=== PATIENT | female | born 2005 | race Hispanic/Latino ===

== ENCOUNTER 2024-11-29 21:26 | Emergency (ER) | payer OTHER, SELFPAY ==
[2024-11-29 21:31] VITALS: BP 112/62
[2024-11-29 21:59] LABS: Hematocrit 36.1 % (37.0-47.0); Hemoglobin 11.7 g/dL (12.0-16.0); Mean Corp Hgb Conc. 32.4 g/dL (33.0-37.0); Mean Corpuscular Volume 77.0 fL (81.0-99.0); Nucleated Red Blood Cells % 0 %; Platelet Count 272 10^3/uL (130-400); Red Cell Dist. Width 14.7 % (11.5-14.5)
[2024-11-29 22:02] LABS: Urine Character Cloudy (Clear)
[2024-11-29 22:13] LABS: HCG, Serum Qualitative Screen Negative
[2024-11-29 22:19] LABS: ALT (SGPT) 20 U/L (0-35); AST (SGOT) 22 U/L (14-36); Albumin 4.4 g/dl (3.5-5.0); Alkaline Phosphatase 60 U/L (38-126); Blood Urea Nitrogen 13 mg/dl (7-17); Calcium 9.1 mg/dl (8.4-10.2); Carbon Dioxide 25 mmol/L (22-30); Chloride 106 mmol/L (98-107); Glucose 97 mg/dl (70-99); Potassium 4.7 mmol/L (3.5-5.1); Sodium 139 mmol/L (135-145); Total Protein 7.8 g/dl (6.3-8.2); eGFR > 60.00
[2024-11-29 22:26] LABS: Urine Red Blood Cell 0-2 /HPF (0-2); Urine Squamous Cell >30 /LPF (Few)
[2024-11-30] VITALS (9 sets, daily range): BP systolic 86–101; BP diastolic 53–66; BMI 26.7
--- NOTE | 2024-11-30 05:54 | ED.GENMED ---
History of Present Illness
<Luis Marquez Jr., PA-C - Last Filed: 12/01/24 17:41>
General
Chief Complaint: Abdominal Pain
Source: patient
Exam Limitations: none
Time Seen by Provider: 11/30/24 02:36
Nursing documentation reviewed up to this point in time: agreed with
History of Present Illness
History of Present Illness:
19-year-old female presenting to the emergency department today with concerns of pelvic pain somewhat persistent over the past 2 months. Claims to have had a miscarriage in September where she had an elevated test had vaginal bleeding at the
time and cramping and believes she had a miscarriage but has had some ongoing achiness. She spoke with a doctor yesterday they told her to go to the ER to get an ultrasound to ensure there retained contents. She denies any ongoing bleeding
at this time. Symptoms are mainly crampy and pelvic. Denies nausea vomiting or fevers.
Review of Systems
<Luis Marquez Jr., PA-C - Last Filed: 12/01/24 17:41>
Review of Systems
Allergies reviewed?: Yes
All Other Systems: ROS reviewed and negative except as documented in HPI and ROS
Phy Exam
<Luis Marquez Jr., PA-C - Last Filed: 12/01/24 17:41>
Physical Exam
Physical Exam:
GENERAL: Alert , in no apparent distress
EYE: pupils equal and reactive
NECK: Supple, no significant adenopathy.
ENT: o/p clr, mmm.
CARDIAC: Regular rate and rhythm .
LUNGS: Clear breath sounds bilaterally, no acute respiratory distress, no wheezes/rales/rhonchi
ABDOMEN: Mild discomfort to the suprapubic and pelvic area otherwise the remainder of the abdomen is soft, without focal tenderness, no r/g, no cvat
NEUROLOGICAL: Alert and oriented, no focal neuro deficits
SKIN: Warm and dry, skin intact.
MUSCULOSKELETAL: No edema, well perfused.
PSYCH: Normal and appropriate interaction.
Course
<Luis Marquez Jr., CHECO - Last Filed: 12/01/24 17:41>
Orders/Labs/Results
Orders:
Orders
11/29/24 21:37
Test Result ONCE
11/29/24 21:45
Beta Hcg Serum Qualitative Screen [HCG, Serum Qualitative Screen] Urgent
Complete Blood Count/With Diff Urgent
Comprehensive Metabolic Panel Urgent
11/29/24 21:50
Urinalysis Urgent
Date Specimen was Collected: 11/29/24
Time Specimen was Collected: 21:37
Urine Microscopic Urgent
Date Specimen was Collected: 11/29/24
Time Specimen was Collected: 21:37
11/30/24 04:09
US Pelvis Only (non-obstetric) Urgent
Comment:
Reason For Exam: pelvic pain, recent miscarriage
Abnormal Lab Results
11/29/24 11/29/24
21:45 21:50
Hgb 11.7 L g/dL
(12.0-16.0)
Hct 36.1 L %
(37.0-47.0)
MCV 77.0 L fL
(81.0-99.0)
MCH 24.9 L pg
(27.0-31.0)
MCHC 32.4 L g/dL
(33.0-37.0)
RDW 14.7 H %
(11.5-14.5)
Creatinine 0.5 L mg/dL
(0.6-1.0)
Ur Leukocyte Esterase 1+ A
(Negative)
Urine WBC 6-10 A /HPF
(0-5)
Urine Bacteria Few A
(Negative)
Urine Albumin 1+ A
(Neg - Trace)
11/29/24 21:45
11/29/24 21:45
Vital Signs
Initial and Last Documented VS:
Initial Vital Signs
Temp Pulse Resp BP
98.3 F 82 18 112/62
11/29/24 21:31 11/29/24 21:31 11/29/24 21:31 11/29/24 21:31
Last Documented Vital Signs
Temp Pulse Resp BP Pulse Ox
98.3 F 73 18 92/60 98
11/29/24 21:31 11/30/24 08:50 11/29/24 21:31 11/30/24 08:50 11/30/24 08:50
<KEYONA Conde - Last Filed: 11/30/24 08:17>
Orders/Labs/Results
Orders:
Orders
11/29/24 21:37
Test Result ONCE
11/29/24 21:45
Beta Hcg Serum Qualitative Screen [HCG, Serum Qualitative Screen] Urgent
Complete Blood Count/With Diff Urgent
Comprehensive Metabolic Panel Urgent
11/29/24 21:50
Urinalysis Urgent
Date Specimen was Collected: 11/29/24
Time Specimen was Collected: 21:37
Urine Microscopic Urgent
Date Specimen was Collected: 11/29/24
Time Specimen was Collected: 21:37
11/30/24 04:09
US Pelvis Only (non-obstetric) Urgent
Comment:
Reason For Exam: pelvic pain, recent miscarriage
Abnormal Lab Results
11/29/24 11/29/24
21:45 21:50
Hgb 11.7 L g/dL
(12.0-16.0)
Hct 36.1 L %
(37.0-47.0)
MCV 77.0 L fL
(81.0-99.0)
MCH 24.9 L pg
(27.0-31.0)
MCHC 32.4 L g/dL
(33.0-37.0)
RDW 14.7 H %
(11.5-14.5)
Creatinine 0.5 L mg/dL
(0.6-1.0)
Ur Leukocyte Esterase 1+ A
(Negative)
Urine WBC 6-10 A /HPF
(0-5)
Urine Bacteria Few A
(Negative)
Urine Albumin 1+ A
(Neg - Trace)
11/29/24 21:45
11/29/24 21:45
Vital Signs
Initial and Last Documented VS:
Initial Vital Signs
Temp Pulse Resp BP
98.3 F 82 18 112/62
11/29/24 21:31 11/29/24 21:31 11/29/24 21:31 11/29/24 21:31
Last Documented Vital Signs
Temp Pulse Resp BP Pulse Ox
98.3 F 73 18 92/60 98
11/29/24 21:31 11/30/24 08:50 11/29/24 21:31 11/30/24 08:50 11/30/24 08:50
<Luis Marquez Jr., PA-C - Last Filed: 12/01/24 17:41>
MDM/Problems Addressed
MDM/Problems Addressed:
19-year-old female presenting to the emergency department today with concerns of pelvic crampy discomfort that has been ongoing over the past 2 months after she believes she had a miscarriage where she had an elevated test and had vaginal
bleeding and believes she had contents. She did not follow-up after this. She spoke with a doctor today that recommended go to the ER for an ultrasound to ensure no retained contents. On arrival vital signs are normal. Labs
unremarkable test is negative urinalysis without signs of infection. Vague mild discomfort mainly overlying the pelvic region of the lower abdomen remainder the abdomen soft no pain to McBurney's point over the upper abdomen.
<Edward R Marquez Jr., PA-C - Last Filed: 12/01/24 17:41>
*Pulse Oximetry
SaO2: 99
Nasal Cannula flow liters per minute: 99
Oxygen Mode of Delivery: Room air
<KEYONA Conde - Last Filed: 11/30/24 08:17>
*Radiology
Radiology exam reviewed: radiology read reviewed
*Pulse Oximetry
Patient hypoxic: no
*Critical Care Note
Total Time (30-74mins, 75-104mins- exclusive of procedures): Not Applicable
<KEYONA Conde - Last Filed: 11/30/24 08:17>
Update Note
Update Note:
Received signout from patient. Patient's ultrasound is negative with good blood flow to bilateral ovaries, her hCG is negative her labs are remarkable. On reexam she has no abdominal pain. She denied any reported vaginal discharge fever chills.
She is nontoxic abdomen soft and nontender she is afebrile with a normal white count. She does have a rail setter in the area all instructions and results reviewed with patient reviewed via the language line as she is [place]ian-speaking.
Patient no acute distress blood pressure on the lower side however patient denies any dizziness and is well-appearing. Patient presented with lower blood pressures throughout the ER stay has remained stable. She is well-appearing well-hydrated .
discussed close follow-up with rail setter
ED Attending Note
<Luis Marquez Jr., PA-C - Last Filed: 12/01/24 17:41>
-
Portions of this chart may have been created with voice recognition software.� Occasional wrong word or��sound alike� substitutions may have occurred due to the inherent limitations of voice recognition software.
Discharge Plan
Departure
Patient Disposition: Home (Routine Discharge)
Date of Disposition: 11/30/24
Time of Disposition: 08:32
Patient with high blood pressure during this ER visit?: No
Condition: Fair
Covid-19: Not Applicable
Discharge Problem:
Abdominal pain
Instructions: Abdominal Pain
Referrals:
UNKNOWN - PT DOES,NOT KNOW [Family Provider]
Activity Restrictions/Additional Instructions:
Murdock ecograf�a fue normal. Por favor, juan c un seguimiento con murdock ginec�logo en los pr�ximos d�as. Regrese si observa alg�n empeoramiento de los s�ntomas.
Interventions
Interventions:
*Risk Screen - Suicide Last Done: 11/29/24 21:35
*General Assessment Last Done: 11/30/24 03:39
*Neglect/Abuse Screening Last Done: 11/29/24 21:35
*ED- Fall Risk Assessment Last Done: 11/30/24 03:39
*ED COVID-19 Vaccine History Last Done: 11/30/24 03:39
*Nursing Disposition Last Done: 11/30/24 08:50
QK-Djewml-Wopotpmwsy Assessment Last Done: 11/30/24 03:39
Discharge Date and Time
Discharge Date/Time: 11/30/24 08:51
Print Language: ALBANIAN
== END 2024-11-30 08:51 | disposition home or self-care (01) ==
LOC: EMR 21:26
PROVIDERS: Emergency Medicine; EMERGENCY PHYSICIAN Student in an Organized Health Care Education/Training Program
DX: R10.2 Pelvic and perineal pain (principal)
CPT/HCPCS: 99284; 76856; 80053; 81003; 81015; 84703; 85025